=== PATIENT | male | born 1975 | race Caucasian/White ===

== ENCOUNTER 2018-05-04 16:37 | Emergency (ER) | payer BC, SELFPAY ==
[2018-05-04 16:38] VITALS: BP 168/85; PULSE 85; RESP 17; TEMP 36.7; O2SAT 97; BMI 28.7
--- NOTE | 2018-05-04 16:54 | EKG12_ITS ---
Test Reason : DIZZINESS Blood Pressure : / mmHG Vent. Rate : 077 BPM Atrial Rate : 077 BPM P-R Int : 142 ms QRS Dur : 100 ms QT Int : 408 ms P-R-T Axes : 057 046 023 degrees QTc Int : 461 ms Normal sinus rhythm Normal ECG Confirmed by LAVERN MCKEE, TORI ([id number]), legal editor MARELY NEAL ([id number] on 05/07/2018 10:52:34 AM Referred By: MG Confirmed By:TORI PUCKETT MD
--- NOTE | 2018-05-04 16:54 | CT_ITS ---
STUDY: CT BRAIN WITHOUT CONTRAST REASON FOR EXAM: Male, 42 years old. Dizziness, nausea and headache today while at movies. RADIATION DOSAGE (If Supplied By Facility): CTDIvol = ( 44.99 ) mGy, DLP = ( 779.24 ) mGycm TECHNIQUE: Transaxial CT imaging of the brain was performed without administration of intravenous contrast material. Individualized dose optimization techniques were used for this CT. COMPARISON: None. FINDINGS: Normal soft tissue structures. Normal calvarium. Normal size ventricles and extra-axial spaces for the patient's age. Normal white matter tracts of the cerebral hemispheres. Normal basal ganglia and thalami. Normal brainstem. Normal cerebellum. There is no intracranial hemorrhage. There are no findings of an acute ischemic infarction. Normal visualized paranasal sinuses. CT/Brain/Head without Contrast IMPRESSION: Normal unenhanced CT scan of the brain. Electronically Signed: Camille Alston MD at 18:11 EDT , Service support ,
[2018-05-04] MEDS: 0.9% Normal Saline 1,000 ML 1000 ML IV (17:14)
[2018-05-04] MEDS: proMETHazine 25 MG/ML Syringe 6.25 MG IV (17:14)
[2018-05-04] MEDS: Meclizine HCl 25 MG Tablet PO (17:17)
[2018-05-04 17:19] LABS: Absolute Lymphocyte Count 3.88 X10^3/ul (0.83-4.51); Absolute Neutrophil Count 4.3 X10^3/uL (2.0-7.7); Basophil# 0.02 X10^3/uL; Basophil% 0.2 % (0-1); Eosinophil# 0.13 X10^3/uL; Eosinophils% 1.5 % (0-5); Hematocrit 41.1 % (40-54); Lymphocyte # 3.88 X10^3/ul (4.0); Lymphocyte % 43.6 % (19-41); Mean Corp Hgb Conc 34.1 g/gl (32-36); Mean Corpuscular Hgb 32.5 pg (27.0-32.0); Mean Corpuscular Volume 95.4 fL (80-94); Mean Platelet Vol. 9.2 fl (6.2-12.0); Monocyte# 0.58 X10^3/uL; Monocyte% 6.5 % (0-10); Neutrophil # 4.28 X10^3/uL (2.7-7.7); Neutrophil % 48.1 % (47-70); POSITIVE COUNT NO; POSITIVE DIFFERENTIAL NO; POSITIVE MORPHOLOGY NO; Platelet Count 222 K/mm3 (150-450); RBC Distribution Width CV 12.6 % (11.6-14.6); RBC Distribution Width SD 43.6 fl (35.1-43.9); Red Blood Count 4.31 M/mm3 (4.6-6.2); White Blood Count 8.9 K/mm3 (4.4-11.0)
[2018-05-04 17:40] LABS: Anion Gap 8 (5-15); BUN 13 mg/dL (7-18); BUN/Creat Ratio 13.5 RATIO (10-20); Chloride 106 mmol/L (98-107); Creatinine, Serum 0.96 mg/dL (0.70-1.30); EST Glomerular Filtration Rate 92 mL/min (>60); Est Glom Filt Rate - Afr Amer 111 mL/min (>60); Estimated Creatinine Clearance 105.61 ml/min; Glucose 124 mg/dL (74-106); Potassium 2.9 mmol/L (3.5-5.1); Sodium Level 141 mmol/L (136-145)
[2018-05-04 17:47] VITALS: BP 127/89; BP 127/91; BP 149/87; PULSE 68; PULSE 72; PULSE 73
[2018-05-04 18:42] VITALS: BP 140/85; PULSE 74; RESP 16; O2SAT 98
--- NOTE | 2018-05-04 19:09 | ED.VISSUMM ---
- ER Visit Summary Date of Service: 05/04/18 Chief Complaint: [Dizziness] History of Present Illness: The patient is a 42 M [presents to the emergency department complaint of dizziness that started about an hour ago. Patient states that he was in a movie theater watching a movie when he got acutely dizzy last a few minutes then resolved. Patient then went to the gas station and while there developed again dizziness and lightheadedness at times vertiginous type symptoms. Patient felt nauseated but did not vomit. Patient denies any headache patient has not had symptoms like this before. Patient denies any chest pain or shortness of breath. He denies any falls or head injuries. Patient denies recent illness.] Physical Examination: HEENT-PERRLA, EOMI. Cranial nerves II through XII grossly intact. TMs clear. Mucous membranes moist. No adenopathy. Cardiovascular-regular rate and rhythm without murmur or ectopy Lungs-clear to auscultation, chest wall stable without crepitus or subcu emphysema Abdomen-normoactive bowel sounds, soft, nontender, no rebound or rigidity, no peritoneal signs. Neuro [id number] and heel carter testing within normal limits negative Romberg negative pronator drift. Patient was Hallpike and he did have subtle nystagmus with head turn to the left and right and both sides seem to cause symptoms for patient. Extremities-intact ?4, normal range of motion, normal pulses, atraumatic] Test Results: [CT scan of the brain without contrast was normal. EKG obtained arrival shows sinus rhythm with a ventricular rate 77 bpm with no acute ST segment changes. CBC with differential is normal. Chemistries show slightly depressed potassium at 2.9 for which I did give him 40 mEq of potassium chloride p.o. Troponin was less than 0.015.] Emergency Department Course and Treatment: [Patient was given Phenergan and Antivert and symptoms essentially resolved. Patient was able to ambulate in the department without difficulty.] Treatment Plan: [Patient was given prescription for Antivert and will be referred to primary care physician for follow-up in 3-5 days. Patient advised to return if persistent dizziness, vomiting, severe headache, or condition should worsen in any way.] Disposition: [Discharged home in stable condition] Impression: [Vertigo-suspect benign positional] This note was generated with [employer] software. It may contain incorrect words, spelling, and punctuation that were not noted in review of the chart prior to signing ED Disposition - Plan for ED Patient: Chief Complaint: Dizziness Referrals: Roman Baxter DO [Primary Care Provider] -
--- NOTE | 2018-05-04 19:12 | ED.DEP ---
ED Disposition - Plan for ED Patient: Chief Complaint: Dizziness Instructions: ED BPV Vertigo Prescriptions: Meclizine HCl [Antivert] 25 mg PO 4X/DAY PRN PRN #20 tab PRN Reason: Dizziness Referrals: Roman Baxter DO [Primary Care Provider] - 3-5 Days
[2018-05-04 19:15] VITALS: BP 136/80; PULSE 74; RESP 18; O2SAT 99
== END 2018-05-04 19:24 | disposition home or self-care (01) ==
PROVIDERS: Emergency Provider Emergency Medicine; Family Provider Family Medicine; PCP Family Medicine
DX: R42 Dizziness and giddiness (principal); R11.0 Nausea
CPT/HCPCS: 70450; 80048; 84484; 85025; 93005; 99285; J7030; A4216

== ENCOUNTER → 2018-05-13 16:17 | Outpatient (CLI) | payer BC, SELFPAY ==
[2018-05-13 17:43] LABS: Anion Gap 8 (5-15); BUN 16 mg/dL (7-18); BUN/Creat Ratio 16.5 RATIO (10-20); Calcium,Total 9.7 mg/dL (8.5-10.1); Chloride 104 mmol/L (98-107); Creatinine, Serum 0.97 mg/dL (0.70-1.30); EST Glomerular Filtration Rate 91 mL/min (>60); Est Glom Filt Rate - Afr Amer 110 mL/min (>60); Glucose 87 mg/dL (74-106); Potassium 3.8 mmol/L (3.5-5.1); Sodium Level 139 mmol/L (136-145)
== END ==
PROVIDERS: Family Provider Family Medicine; PCP Family Medicine; Visit Provider Family Medicine
DX: E87.6 Hypokalemia (principal)
CPT/HCPCS: 36415; 80048